=== PATIENT | female | born 1980 | race African-American/Black ===

== ENCOUNTER 2018-12-05 08:37 | Emergency (ER) | payer OTHER ==
[~2018-12-05] VITALS: Ht 157.5 cm; Wt 57.3 kg
[2018-12-05] MEDS ORDERED: IBUPROFEN 600 MG TABLET PO ONE (09:15)
[2018-12-05] MEDS ORDERED: ONDANSETRON HCL 4 MG TABLET PO ONE (09:15)
[2018-12-05 10:55] VITALS: BP 100/58
== END 2018-12-05 11:24 | disposition home or self-care (01) ==
LOC: EMS 08:38
DX: J11.1 Influenza due to unidentified influenza virus with other respiratory manifestations (principal); R19.7 Diarrhea, unspecified; F17.210 Nicotine dependence, cigarettes, uncomplicated
CPT/HCPCS: 99283; 99406; Q0162